=== PATIENT | female | born 1950 ===

== ENCOUNTER 2022-06-05 21:47 | Emergency (ER) | payer OTHER ==
--- OUTSIDE RECORDS SUMMARY | 2022-06-05 21:50 | XMS REPORT | Continuity of Care Document ---
:1950 Author Organization [facility] t Address [address] [place] [address] Care Team Providers Name Role Phone KARLENE Attending Clinician Unavailable Sakina Attending Clinician Unavailable KARLENE Admitting Clinician Unavailable Sakina Admitting Clinician Unavailable Payers Payer Name Policy Type Policy Number Effective Date Expiration Date S stephane [place]: [id number] 2017 [employer] [employer] 00:00:00 [place]: [id number] 2017 [place] [employer] - 00:00:00 [facility] - [id number] 2018 EV BENEFITS 00:00:00 MANAGEMENT Problems Condition Condition Condition Status Onset Resolution Last Treating Co mments Source Name Details Category Date Date Treatment Clinician Date Long-term Long-term Problem Active 2020-09 [facility] drug Drug 0-18 da therapy Therapy 00:00: Medical 00 Group Osteopenia Osteopenia Problem Active 2019-09 [facility] with high with High 2-17 da fracture Fracture 00:00: Medica l risk Risk 00 Group Essential Essential Problem Active 2016-09 [facility] hypertensi Hypertensi 0-04 da on on 00:00: Medical 00 Group Acute Acute Disease [facility] 4[facility] Hepatitis, Hepatitis, Disease [facility] Jaundice Jaundice Disease [facility] Allergies, Adverse Reactions, Alerts Allergy Allergy Status Severity Reaction(s) Onset Inactive Treating Comm ents Source Name Type Date Date Clinician Lisinopr Drug Active Other (See Coughing [facility] Int[facility] Comments) 4[facility]14 [facility] Iodine Propensi Active [facility] 4[facility]12 [facility] Iodide adverse 00:00: Medical Containi reaction 00 Center ng s Products Shellfis Propensi Active [facility] 01-03 [facility] Containi adverse 00:00: Medical ng reaction 00 Center Products s Iodine Allergy Active [facility] SHELLFIS Allergy Active [place] to da DERIVED [facility] Medical e [facility] Social History Social Habit Start Date Stop Date Quantity Comments Source Alcohol intake 2016-01-07 2016-01-07 Current [facility] Wally es 00:00:00 00:00:00 non-drinker of Medical Ce nter alcohol (finding) Tobacco use and 2016-01-04 2016-01-04 Never used [facility] Li kes exposure 00:00:00 00:00:00 [facility] Center Sex Assigned At [birth year] [facility] Li kes 00:00:00 00:00:00 Medical Center Smoking Status Start Date Stop Date Source Former Smoker [place] [facility] Never smoker [facility] Med ical Center Medications Ordered Filled Start Stop Current Ordering Indication Dosage Frequency Signature Comments Components Source Medication Medication Date Date Medication? Clinician (SIG) Name Name losartan-hy Yes 1{tbl} QD Take [address] drochloroth 4-17 tablet by Wally es iazide 19:34: mouth Medical (HYZAAR) 23 daily. Center 100-25 mg per tablet promethazin Yes 25mg Take [address] [facility] [facility] e 4-17 by mouth [facility] (PHENERGAN) 19:34: every 6 Med ical 25 MG 23 (six) Center tablet hours as needed for Nausea. amlodipine amlodipine No amlodipine [facility] 10 mg 10 mg 10 mg da tablet TAKE tablet TAKE tablet Medical 1 TABLET BY 1 TABLET BY TAKE 1 Group MOUTH ONCE MOUTH ONCE TABLET BY DAILY DAILY MOUTH ONCE DAILY Breo Breo No 1puff(s Q1D Breo [place] Ellipta 100 Ellipta 100 ) Ellipta da mcg-25 mcg-25 100 mcg-25 Medic al mcg/dose mcg/dose mcg/dose Rafiq up powder for powder for powder for inhalation inhalation inhalation Inhale 1 Inhale 1 Inhale 1 puff every puff every puff every day by day by day by inhalation inhalation inhalation route for route for route for 90 days. 90 days. 90 days. metoprolol metoprolol No metoprolol [place] succinate succinate succinate da ER 50 mg ER 50 mg ER 50 mg Med ical tablet,exte tablet,exte tablet,ext Group nded nded ended release 24 release 24 release 24 hr TAKE 1 hr TAKE 1 hr TAKE 1 TABLET BY TABLET BY TABLET BY MOUTH ONCE MOUTH ONCE MOUTH ONCE DAILY DAILY DAILY Ventolin Ventolin No 2puff(s Q4H Ventolin [facility] HFA 90 HFA 90 ) HFA 90 da mcg/actuati mcg/actuati mcg/actuat Medical on aerosol on aerosol ion Rafiq up inhaler inhaler aerosol Inhale 2 Inhale 2 inhaler puffs every puffs every Inhale 2 4 hours by 4 hours by puffs inhalation inhalation every 4 route as route as hours by needed for needed for inhalation 90 days. 90 days. route as needed for 90 days. Immunizations Ordered Immunization Filled Immunization Date Status Commen ts Source Name Name Influenza vaccine, Influenza vaccine, 2021-07-12 Completed [place] quadrivalent, quadrivalent, 09:54:35 Medical Group adjuvanted adjuvanted pneumococcal, pneumococcal, 2020-07-08 Completed Mike a unspecified unspecified 00:00:00 Medical Grou p formulation formulation zoster live zoster live 2018-05-22 Completed [place] 00:00:00 Medical Group zoster live zoster live 2017-01-22 Completed [place] 00:00:00 Medical Group Vital Signs Vital Name Observation Time Observation Value Comments Source BP Diastolic 2022-02-17 00:00:00 83 mm[Hg[facility] Height 2022-02-17 00:00:00 60 [in_i] [facility] BMI (Body Mass 2022-02-17 00:00:00 51.9 kg/m2 [facility]) Group BP Systolic 2022-02-17 00:00:00 155 mm[Hg] [facility] Body Weight 2022-02-17 00:00:00 4256 [facility]_av[facility] BP Diastolic 2021-07-12 00:00:00 80 mm[Hg] [facility] Height 2021-07-12 00:00:00 60 [in_i] [facility] BMI (Body Mass 2021-07-12 00:00:00 54.4 kg/m2 [facility]) Group BP Systolic 2021-07-12 00:00:00 135 mm[Hg] [facility] Body Weight 2021-07-12 00:00:00 4453 [oz_av] [facility] BP Diastolic 2020-10-19 00:00:00 89 mm[Hg] [facility] Height 2020-10-19 00:00:00 60 [in_i] [facility] BMI (Body Mass 2020-10-19 00:00:00 52.7 kg/m2 [facility]) Group BP Systolic 2020-10-19 00:00:00 149 mm[Hg] [facility] Body Weight 2020-10-19 00:00:00 4315.2 [oz_av] [facility] BP Diastolic 2020-08-17 00:00:00 99 mm[Hg] [facility] Height 2020-08-17 00:00:00 60 [in_i] [facility] BMI (Body Mass 2020-08-17 00:00:00 51.7 kg/m2 [facility]) Group BP Systolic 2020-08-17 00:00:00 152 mm[Hg] [facility] Body Weight 2020-08-17 00:00:00 4232 [oz_av] [facility] BP Diastolic 2020-07-06 00:00:00 68 mm[Hg] [facility] Height 2020-07-06 00:00:00 60 [in_i] [facility] BMI (Body Mass 2020-07-06 00:00:00 51.8 kg/m2 [facility]) Group BP Systolic 2020-07-06 00:00:00 130 mm[Hg] [facility] Body Weight 2020-07-06 00:00:00 4241.6 [oz_av] [facility] BP Diastolic 2019-11-18 00:00:00 81 mm[Hg] [facility] Height 2019-11-18 00:00:00 60 [in_i] [facility] BMI (Body Mass 2019-11-18 00:00:00 50.5 kg/m2 [facility]) Group BP Systolic 2019-11-18 00:00:00 144 mm[Hg] [facility] Body Weight 2019-11-18 00:00:00 4136 [oz_av] [facility] BP Diastolic 2019-09-19 00:00:00 80 mm[Hg] [facility] Height 2019-09-19 00:00:00 60 [in_i] [facility] BMI (Body Mass 2019-09-19 00:00:00 49.6 kg/m2 [facility]) Group BP Systolic 2019-09-19 00:00:00 141 mm[Hg] [facility] Body Weight 2019-09-19 00:00:00 4064 [oz_av] [facility] BP Diastolic 2019-07-04 00:00:00 81 mm[Hg] [facility] Height 2019-07-04 00:00:00 60 [in_i] [facility] BMI (Body Mass 2019-07-04 00:00:00 55 kg/m2 [facility]) Group BP Systolic 2019-07-04 00:00:00 144 mm[Hg] [facility] Body Weight 2019-07-04 00:00:00 4505 [oz_av] [facility] BP Diastolic 2019-06-27 00:00:00 78 mm[Hg] [facility] Height 2019-06-27 00:00:00 60 [in_i] [facility] BMI (Body Mass 2019-06-27 00:00:00 53 kg/m2 [facility]) Group BP Systolic 2019-06-27 00:00:00 140 mm[Hg] [facility] Body Weight 2019-06-27 00:00:00 4342 [oz_av] [facility] BP Diastolic 2019-06-17 00:00:00 80 mm[Hg] [facility] Height 2019-06-17 00:00:00 60 [in_i] [facility] BMI (Body Mass 2019-06-17 00:00:00 54.9 kg/m2 [facility]) Group BP Systolic 2019-06-17 00:00:00 133 mm[Hg] [facility] Body Weight 2019-06-17 00:00:00 4496 [oz_av] [facility] BP Diastolic 2018-10-02 00:00:00 86 mm[Hg] [facility] Height 2018-10-02 00:00:00 60 [in_i] [facility] BMI (Body Mass 2018-10-02 00:00:00 55.1 kg/m2 [facility]) Group BP Systolic 2018-10-02 00:00:00 167 mm[Hg] [facility] Body Weight 2018-10-02 00:00:00 4512 [oz_av] [facility] Procedures Procedure Date / Time Performing Clinician Source Performed XR, hand, 3 or more view 2022-02-17 00:00:00 [facility] MAMMO, screening, digital, 2021-07-12 00:00[facility] DEXA 2021-07-12 00:00:00 [place] [facility] MAMMO, screening, digital, 2020-08-17 00:00:00 [facility] XR, chest, 2 view 2019-07-04 00:00:00 [facility] MAMMO, screening, digital, 2019-06-17 00:00:00 [facility] Hernia Repair W/mesh 2007-09-24 00:00:00 [facility] Hernia Repair W/mesh 2006-09-24 00:00:00 [facility] Cholecystectomy 2004-09-24 00:00:00 [place] [facility] Tubal Ligation [facility] Eye Surgery Procedure [facility] Plan of Care Planned Activity Planned Date Details Comments Source Diagnostic Test 2022-02-17 magnesium, serum or [facility] Pending 00:00:00 plasma [code = Group magnesium, serum or plasma] Diagnostic Test 2022-02-17 BMP, serum or plasma [facility] Pending 00:00:00 [code = BMP, serum or Group plasma] Diagnostic Test 2022-02-17 CK (creatine kinase), [facility] Pending 00:00:00 total, serum [code = Group CK (creatine kinase), total, serum] Diagnostic Test 2022-02-17 phosphorus, serum or [facility] Pending 00:00:00 plasma [code = Group phosphorus, serum or plasma] Diagnostic Test 2022-02-17 hemoglobin A1c, QN, [facility] Pending 00:00:00 blood [code = Group hemoglobin A1c, QN, blood] Diagnostic Test 2022-02-17 rf (rheumatoid [facility] Pending 00:00:00 factor), serum [code = Group rf (rheumatoid factor), serum] Diagnostic Test 2022-02-17 ESR (erythrocyte [facility] Pending 00:00:00 sedimentation rate), Group blood [code = ESR (erythrocyte sedimentation rate), blood] Diagnostic Test 2022-02-17 JOYA (antinuclear [facility] Pending 00:00:00 antibodies) screen, Group ifa, serum [code = JOYA (antinuclear antibodies) screen, ifa, serum] Future Appointment 2022-08-20 Brittany Behzad Jara [facility] 00:00:[address] [facility] [address]; , [place] [address] Future Appointment 2022-07-[address] 00:00:[address] [facility] [address]; , [place] [address] Instructions [facility] Group Encounters Start End Encounter Admission Attending Care Care Encounter Source Date/Time Date/Time Type Type Clinicians Facility Department ID 2022-04-26 2022-04-26 Outpatient KELVIN ABREU [id number] [place] 00:00:00 00:00:00 SSA 0803 da [facility] 2022-02-17 2022-02-17 Britt[place] J[place]_S[place] MMG [place] - [id number] 22 [place] 00:00:00 00:00:00 Ramírez [facility] 27 lisa Jara [facility] Medical [employer]: [address] [facility] [address], [place] [address] , Ph. 2021-07-15 2021-07-15 Outpatient Hawkins_M MMG MMG [id number] -2020 [place] 09:09:00 09:09:00 1022 Medical Group 2021-07-12 2021-07-12 Brittany Hawkins_M [place]G [place] - [id number] 21 [place] 00:00:00 00:00:00 Desiree Vazquez 1019 [facility] Medical [employer]: [address] [facility] [address], [place] [address] , Ph. 2021-07-11 2021-07-11 Outpatient Hawkins_M MMG MMG [id number] -2020 [place] 01:16:00 01:16:00 1018 Medical Group 2021-06-25 2021-06-25 Outpatient Hawkins_M MMG MMG [id number] -2020 [place] 03:31:00 03:31:00 1002 Medical Group 2021-02-15 2021-02-15 Outpatient Hawkins_M MMG MMG [id number] -2020 [place] 05:32:00 05:32:00 0525 Medical Group 2021-01-21 2021-01-21 Outpatient Hawkins_M MMG MMG [id number] -[id number] [place] 08:51:00 08:51:00 0430 Medical Group 2021-01-14 2021-01-14 Outpatient Hawkins_M MMG MMG [id number] -2020 [place] 03:20:00 03:20:00 0423 Medical Group 2020-11-23 2020-11-23 Outpatient Hawkins_M MMG MMG [id number] -2020 [place] 09:41:00 09:41:00 0302 da Medical Group 2020-11-17 2020-11-17 Outpatient Hawkins_M MMG MMG [id number] -2020 [place] 03:30:00 03:30:00 0224 Medical Group 2020-10-19 2020-10-19 Brittany Hawkins_M MM[place] - [id number] 21 [place] 00:00:00 00:00:00 Desiree Vazquez 0126 da Jara, Medical Medical [employer]: [address] [facility] [address], [place] [address] , Ph. 2020-08-17 2020-08-17 Brittany Jara_M [place] - [id number] 20 [place] 00:00:00 00:00:00 Desiree Vazquez 1124 lisa Jara, Medical Medical [employer]: [address] [facility] [address], [place] [address] , Ph. 2020-08-11 2020-08-11 Outpatient Hawkins_M MMG MMG [id number] -2019 [place] 02:30:00 02:30:00 1118 da Medical Group 2020-07-09 2020-07-09 Outpatient Hawkins_M MMG MMG [id number] -2019 [place] 10:22:00 10:22:00 1016 Medical Group 2020-07-07 2020-07-07 Outpatient Hawkins_M MMG MMG [id number] -2019 [place] 09:50:00 09:50:00 1014 da Medical Group 2020-07-06 2020-07-06 Brittany Hawkins_M MM[place] - [id number] 20 [place] 00:00:00 00:00:00 Desiree Vazquez 1013 lisa Jara, Medical Medical [employer]: [address] [place] [address] [address], [place] [address] , Ph. 2020-06-18 2020-06-18 Outpatient Hawkins_M MMG MMG [id number] -2019 [place] 03:23:00 03:23:00 0925 da Medical Group 2019-11-19 2019-11-19 Outpatient Hawkins_M MMG MMG [id number] [place] 07:25:00 07:25:00 0226 da Medical Group 2019-11-18 2019-11-18 Brittany Hawkins_M [place] - [id number] 20 [place] 00:00:00 00:00:00 Desiree Vazquez 0225 lisa Jara, Medical Medical [employer]: [address] [facility] [address], [place] [address] , Ph. 2019-09-26 2019-09-26 Outpatient Sakina [facility] [id number] [place] 04:27:00 04:27:00 0103 lisa Medical Group 2019-09-19 2019-09-19 [place] [facility] [place] - [id number] [place] 00:00:00 00:00:00 Desiree Vazquez 1227 lisa Jara Medical Medical [employer]: [address] [facility] [address], [place] [address] , Ph. 2019-07-04 2019-07-04 [place] [facility] [place] - [id number] [place] 00:00:00 00:00:00 Desiree Vazquez 1011 lisa Jara Medical Medical [employer]: [address] [facility] [address], [place] [address] , Ph. 2019-06-27 2019-06-27 Britt[place] [facility] [place] [place] - [id number] [place] 00:00:00 00:00:00 Desiree Vazquez 1004 lisa Jara Medical Medical [employer]: [address] [facility] [address], [place] [address] , Ph. 2019-06-17 2019-06-17 Jose [place] [facility] [place] [place] [place] - [id number] [place] 00:00:00 00:00:00 Milo Vazquez 09 lisa [facility] Medical MD: [address] [facility] [address], [place] [address] , Ph. 2018-10-02 2018-10-02 La[place] [facility] [place] [place] [place] - [id number] [place] 00:00:00 00:00:00 Discovery Zack 0109 lisa [employer]: [address] [place] [address] [address], [facility] [address] , Ph. Results Test Description Test Time Test Comments Results Result Comments Source CBC W Auto Differential panel - Blood 2021-07-12 07:29:00 Test Item Value Reference Range Interpretation Comme nts white blood count (test code = white blood count) 8.4 K/uL 4.0- 11.5 red blood count (test code = red blood count) 4.63 M/uL 3.80-5.2 0 hemoglobin (test code = hemoglobin) 14.3 g/dL 10.5-15.7 hematocrit (test code = hematocrit) 44.8 % 34.0-50.0 MCV [Entitic volume] (test code = 45785-2) 96.8 fL 86-100 mean corpuscular hemoglobin (test code = mean corpuscular 30.9 pg 26.2-33.4 hemoglobin) mean corpuscular HGB conc (test code = mean corpuscular HGB 31.9 g/ dL 30-34 conc) red cell distribution width (test code = red cell 12.6 % 12.0 -15.5 distribution width) platelet count (test code = platelet count) 326 K/uL 165-450 mean platelet volume (test code = mean platelet volume) 10.3 fL 9.4-12.6 Segmented neutrophils/100 leukocytes in Blood (test code = 68.0 % 44.4-80.1 79945-3) Immature granulocytes [#/volume] in Blood (test code = 0.1 K/uL 0.0-0.03 H 64543-5) lymphocyte% (test code = lymphocyte%) 20.6 % 10.0-50.0 mono % (test code = mono %) 8.4 % 3.6-12.0 eos % (test code = eos %) 2.0 % 0.0-5.4 Basophils/100 leukocytes in Unspecified specimen (test code 0.4 % 0.1-1.2 = 44805-7) Band form neutrophils [#/volume] in Blood (test code = 5.73 K/uL 1.56-6.13 64474-7) Lymphocytes [#/volume] in Unspecified specimen by Automated 1.7 K/u L 1.18-3.74 count (test code = 02111-0) mono # (test code = mono #) 0.71 K/uL 0.24-0.86 eos # (test code = eos #) 0.17 K/uL 0.04-0.36 basophil # (test code = basophil #) 0.03 K/uL 0.01-0.08 NRBC% (test code = NRBC%) 0 /100 WBC 0-0.2 NRBC# (test code = NRBC#) 0 K/uL [facility]Mass/volume] in [id number] 07:29:00 Test Item Value Reference Range Interpretation Comments Hemoglobin A1c [Mass/volume] in Blood 6.6 % 4.0-6.0 H (test code = 50537-5) [facility] 2000 [facility] - Serum or Plasma 2021-07-12 07:29:00 Test Item Value Reference Range Interpretation Comments glucose (test code = glucose) 138 mg/dL 82-115 H Urea nitrogen [Mass/volume] in 11 mg/dL 8-23 Serum or Plasma (test code = 3094-0) osmolality calculated,serum (test 281 mOsm/kg 280-300 code = osmolality calculated,serum) creatinine (test code = 0.6 mg/dL 0.50-0.90 creatinine) glomerular filtration rate (test >60.00 code = glomerular filtration rate) Urea nitrogen/Creatinine [Mass 18.3 12-20 Ratio] in Serum or Plasma (test code = 3097-3) sodium level (test code = sodium 140 mmol/L 135-145 level) Potassium [Moles/volume] in Body 4.4 mmol/L 3.5-5.2 fluid (test code = 2821-7) chloride level (test code = 102 mmol/L 98-108 chloride level) CO2 (test code = CO2) 26 mmol/L 21-32 anion gap (test code = anion gap) 16.4 mEq/L 12-20 calcium level (test code = 9.6 mg/dL 8.8-10.2 calcium level) total protein (test code = total 7.7 g/dL 6.6-8.7 protein) albumin (test code = albumin) 4.2 g/dL 3.5-5.2 globulin (test code = globulin) 3.5 gm/dL A/G ratio (test code = A/G ratio) 1.2 >1.0 bilirubin,total (test code = 0.4 mg/dL 0.0-1.2 bilirubin,total) AST/SGOT (test code = AST/SGOT) 30 U/L 15-32 Alanine aminotransferase 30 U/L 0-33 [Enzymatic activity/volume] in Serum or Plasma (test code = 1742-6) Alkaline phosphatase [Enzymatic 91 U/L 35-105 activity/volume] in Serum or Plasma (test code = 6768-6) [facility] 1996 panel - Serum or [id number] 07:29:00 Test Item Value Reference Range Interpretation Comments cholesterol level (test code = 152 mg/dL 150-200 cholesterol level) triglycerides level (test code = 133 mg/dL <150 triglycerides level) HDL cholesterol (test code = HDL 43 mg/dL >65 L cholesterol) LDL cholesterol direct (test code = 94 mg/dL <100 LDL cholesterol direct) cholesterol risk ratio (test code = 3.534 cholesterol risk ratio) [facility] W Reflex Culture panel - Urine 2021-07-12 00:00:00 Test Item Value Reference Range Interpretation Comments Color of Urine by Auto (test light yellow code = 54872-2) Appearance of Urine (test code clear clear = 5767-9) Glucose [Presence] in Urine by negative negative Automated test strip (test code = 54180-3) Bilirubin.total [Mass/volume] negative negative in Urine (test code = 1978-6) Ketones [Mass/volume] in Urine negative negative by Automated test strip (test code = 35243-1) Specific gravity of Urine by 1.016 1.003-1.030 Automated test strip (test code = 56569-4) blood urine (test code = blood negative negative urine) pH of Urine (test code = 7.000 5-9 2756-5) protein urine (UA) (test code = negative negative protein urine (UA)) Urobilinogen [Presence] in normal 0.2-1.0 Urine (test code = 27401-5) Nitrite [Presence] in Urine by negative negative Test strip (test code = 5802-4) Leukocyte esterase [Presence] negative negative in Urine by Automated test strip (test code = 86528-9) Erythrocytes [#/volume] in =1-5 0-5 Urine by Automated count (test code = 798-9) Leukocytes [#/area] in Urine =1-5 0-5 sediment by Automated count (test code = 22991-2) Epithelial cells [Presence] in =1-5 0-5 Urine sediment by Light microscopy (test code = 59118-5) Bacteria identified in Urine by none detected none detect Culture (test code = 630-4) Casts [#/area] in Urine none detected none detect sediment by Automated count (test code = 40239-9) urine culture added? (test code no = urine culture added?) [facility] [Units/volume] in Serum or [id number] 00:00:00 Test Item Value Reference Range Interpretation Comments Thyrotropin [Units/volume] in 3.33 uIU/mL 0.36-3.74 Serum or Plasma (test code = 3016-3) [facility] Center[facility]atitis C virus Ab [Units/volume] in [id number] 00:00:00Hepatitis C Virus Ab, SerumMataLaird HospitalMglqu27-Bbusfhthrjlvvs D3+25-Hydroxyvitamin D2 [Mass/volume] in Serum or [id number] 00:00:00 Test Item Value Reference Range Interpretation Comments vitamin D, 25-hydroxy, total, serum 13.78 (test code = vitamin D, 25-hydroxy, total, serum) [facility] Center[facility]inalysis macro (dipstick) panel - [id number] 15:16:00 Test Item Value Reference Range Interpretation Comments Leukocytes (test code = Leukocytes) Negative Nitrite (test code = Nitrite) negative Urobilinogen (test code = 1 Urobilinogen) Protein (test code = Protein) Negative pH (test code = pH) 6.0 Blood (test code = Blood) Moderate Specific Hudson (test code = 1.030 Specific Hudson) Ketone (test code = Ketone) Negative Bilirubin (test code = Bilirubin) Negative Glucose (test code = Glucose) Negative Appearance (test code = Appearance) Cloudy Color (test code = Color) Yellow [facility] 2000 panel - Serum or Plasma 2019-06-27 07:06:00 Test Item Value Reference Range Interpretation Comments Glucose [Mass/volume] in Serum or 131 mg/dL 82-115 H Plasma (test code = 2345-7) Urea nitrogen [Mass/volume] in 9 mg/dL 8-23 Serum or Plasma (test code = 3094-0) osmolality calculated, serum (test 280 280-300 code = osmolality calculated, serum) creatinine (test code = 0.6 mg/dL 0.50-0.90 creatinine) glomerular filtration rate (test >60.00 code = glomerular filtration rate) Urea nitrogen/Creatinine [Mass 15.0 12-20 Ratio] in Serum or Plasma (test code = 3097-3) sodium level (test code = sodium 140 mmol/L 135-145 level) potassium level (test code = 4.0 mmol/L 3.5-5.2 potassium level) chloride level (test code = 102 mmol/L 98-108 chloride level) CO2 (test code = CO2) 27 mmol/L 21-32 anion gap (test code = anion gap) 15.0 mEq/L 12-20 calcium level (test code = calcium 9.6 mg/dL 8.8-10.2 level) total protein (test code = total 8.3 g/dL 6.6-8.7 protein) albumin (test code = albumin) 4.6 g/dL 3.5-5.2 globulin (test code = globulin) 3.7 gm/dL A/G ratio (test code = A/G ratio) 1.2 >1.0 bilirubin,total (test code = 0.4 mg/dL 0.0-1.2 bilirubin,total) AST/SGOT (test code = AST/SGOT) 29 U/L 15-32 Alanine aminotransferase 28 U/L 0-33 [Enzymatic activity/volume] in Serum or Plasma (test code = 1742-6) Alkaline phosphatase [Enzymatic 130 U/L 35-105 H activity/volume] in Serum or Plasma (test code = 6768-6) [facility] - [facility] or [id number] 07:06:00 Test Item Value Reference Range Interpretation Comments cholesterol level (test code = 140 mg/dL 150-200 L cholesterol level) triglycerides level (test code = 133 mg/dL <150 triglycerides level) HDL cholesterol (test code = HDL 40 mg/dL >65 L cholesterol) LDL cholesterol direct (test code = 90 mg/dL <100 LDL cholesterol direct) cholesterol risk ratio (test code = 3.500 cholesterol risk ratio) [facility]] in Serum or [id number] 07:06:00 Test Item Value Reference Range Interpretation Comments Thyrotropin [Units/volume] in 3.91 uIU/mL 0.36-3.74 H Serum or Plasma (test code = 3016-3) [facility] - Serum or Plasma 2019-06-27 07:06:00 Test Item Value Reference Range Interpretation Comments Glucose [Mass/volume] in Serum or 131 mg/dL 82-115 H Plasma (test code = 2345-7) Urea nitrogen [Mass/volume] in 9 mg/dL 8-23 Serum or Plasma (test code = 3094-0) osmolality calculated, serum (test 280 280-300 code = osmolality calculated, serum) creatinine (test code = 0.6 mg/dL 0.50-0.90 creatinine) glomerular filtration rate (test >60.00 code = glomerular filtration rate) Urea nitrogen/Creatinine [Mass 15.0 12-20 Ratio] in Serum or Plasma (test code = 3097-3) sodium level (test code = sodium 140 mmol/L 135-145 level) potassium level (test code = 4.0 mmol/L 3.5-5.2 potassium level) chloride level (test code = 102 mmol/L 98-108 chloride level) CO2 (test code = CO2) 27 mmol/L 21-32 anion gap (test code = anion gap) 15.0 mEq/L 12-20 calcium level (test code = calcium 9.6 mg/dL 8.8-10.2 level) total protein (test code = total 8.3 g/dL 6.6-8.7 protein) albumin (test code = albumin) 4.6 g/dL 3.5-5.2 globulin (test code = globulin) 3.7 gm/dL A/G ratio (test code = A/G ratio) 1.2 >1.0 bilirubin,total (test code = 0.4 mg/dL 0.0-1.2 bilirubin,total) AST/SGOT (test code = AST/SGOT) 29 U/L 15-32 Alanine aminotransferase 28 U/L 0-33 [Enzymatic activity/volume] in Serum or Plasma (test code = 1742-6) Alkaline phosphatase [Enzymatic 130 U/L 35-105 H activity/volume] in Serum or Plasma (test code = 6768-6) [facility] - Serum or [id number] 07:06:00 Test Item Value Reference Range Interpretation Comments cholesterol level (test code = 140 mg/dL 150-200 L cholesterol level) triglycerides level (test code = 133 mg/dL <150 triglycerides level) HDL cholesterol (test code = HDL 40 mg/dL >65 L cholesterol) LDL cholesterol direct (test code = 90 mg/dL <100 LDL cholesterol direct) cholesterol risk ratio (test code = 3.500 cholesterol risk ratio) [facility] [Units/volume] in Serum or [id number] 07:06:00 Test Item Value Reference Range Interpretation Comments Thyrotropin [Units/volume] in 3.91 uIU/mL 0.36-3.74 H Serum or Plasma (test code = 3016-3) [facility] - [id number] 06:58:00 Test Item Value Reference Range Interpretation Comments white blood count (test code = 7.9 K/uL 4.0-11.5 white blood count) red blood count (test code = red 4.75 M/uL 3.80-5.20 blood count) hemoglobin (test code = 14.4 g/dL 10.5-15.7 hemoglobin) hematocrit (test code = 43.9 % 34.0-50.0 hematocrit) Erythrocyte mean corpuscular 92.4 fL 86-100 volume [Entitic volume] (test code = 53018-5) mean corpuscular hemoglobin (test 30.3 pg 26.2-33.4 code = mean corpuscular hemoglobin) mean corpuscular HGB conc (test 32.8 g/dL 30-34 code = mean corpuscular HGB conc) red cell distribution width (test 13.3 % 12.0-15.5 code = red cell distribution width) platelet count (test code = 293 K/uL 165-450 platelet count) mean platelet volume (test code = 9.8 fL 9.4-12.6 mean platelet volume) Neutrophils.segmented/100 56.5 % 44.4-80.1 leukocytes in Blood (test code = 26753-7) Granulocytes Immature [#/volume] 0.0 K/uL 0.0-0.03 in Blood (test code = 51423-6) lymphocyte% (test code = 23.3 % 10.0-50.0 lymphocyte%) mono % (test code = mono %) 9.1 % 3.6-12.0 eos % (test code = eos %) 10.3 % 0.0-5.4 H Basophils/100 leukocytes in 0.5 % 0.1-1.2 Unspecified specimen (test code = 20291-3) Neutrophils.band form [#/volume] 4.46 K/uL 1.56-6.13 in Blood (test code = 87289-2) Lymphocytes [#/volume] in 1.8 K/uL 1.18-3.74 Unspecified specimen by Automated count (test code = 79361-4) mono # (test code = mono #) 0.72 K/uL 0.24-0.86 eos # (test code = eos #) 0.81 K/uL 0.04-0.36 H basophil # (test code = basophil 0.04 K/uL 0.01-0.08 #) NRBC% (test code = NRBC%) 0 /100 WBC 0-0.2 NRBC# (test code = NRBC#) 0 K/uL [facility], [id number] 06:58:00 NeutrophilsBandLymphocyteAtypical LymphMonocyteEosinophilBasophilDifferential CommentPlatelet EstimatePlatelet MorphologyPolychromasiaPoikilocytosisMacrocytosisStomatocyteToxic GranulationBurr CellsHypersegmented PolysRouleauDifferential comment-[facility] Auto Differential panel - [id number] 06:58:00 Test Item Value Reference Range Interpretation Comments white blood count (test code = 7.9 K/uL 4.0-11.5 white blood count) red blood count (test code = red 4.75 M/uL 3.80-5.20 blood count) hemoglobin (test code = 14.4 g/dL 10.5-15.7 hemoglobin) hematocrit (test code = 43.9 % 34.0-50.0 hematocrit) Erythrocyte mean corpuscular 92.4 fL 86-100 volume [Entitic volume] (test code = 60891-3) mean corpuscular hemoglobin (test 30.3 pg 26.2-33.4 code = mean corpuscular hemoglobin) mean corpuscular HGB conc (test 32.8 g/dL 30-34 code = mean corpuscular HGB conc) red cell distribution width (test 13.3 % 12.0-15.5 code = red cell distribution width) platelet count (test code = 293 K/uL 165-450 platelet count) mean platelet volume (test code = 9.8 fL 9.4-12.6 mean platelet volume) Neutrophils.segmented/100 56.5 % 44.4-80.1 leukocytes in Blood (test code = 33949-5) Granulocytes Immature [#/volume] 0.0 K/uL 0.0-0.03 in Blood (test code = 07459-5) lymphocyte% (test code = 23.3 % 10.0-50.0 lymphocyte%) mono % (test code = mono %) 9.1 % 3.6-12.0 eos % (test code = eos %) 10.3 % 0.0-5.4 H Basophils/100 leukocytes in 0.5 % 0.1-1.2 Unspecified specimen (test code = 85602-2) Neutrophils.band form [#/volume] 4.46 K/uL 1.56-6.13 in Blood (test code = 74329-4) Lymphocytes [#/volume] in 1.8 K/uL 1.18-3.74 Unspecified specimen by Automated count (test code = 64490-5) mono # (test code = mono #) 0.72 K/uL 0.24-0.86 eos # (test code = eos #) 0.81 K/uL 0.04-0.36 H basophil # (test code = basophil 0.04 K/uL 0.01-0.08 #) NRBC% (test code = NRBC%) 0 /100 WBC 0-0.2 NRBC# (test code = NRBC#) 0 K/uL [facility], [id number] 06:58:00 NeutrophilsBandLymphocyteAtypical LymphMonocyteEosinophilBasophilDifferential CommentPlatelet EstimatePlatelet MorphologyPolychromasiaPoikilocytosisMacrocytosisStomatocyteToxic GranulationBurr CellsHypersegmented PolysRouleauDifferential comment-[facility]
[2022-06-06] MEDS ORDERED: OXYMETAZOLINE HCL 0.05% 15ML NAS ONE ×2 (00:25→00:34)
--- NOTE | 2022-06-06 01:20 | ER ---
Nurse's Notes [facility] Name: Thao Granda Age: 71 yrs Sex: Female : 1950 Arrival Date: 06/05/2022 Time: 21:51 Bed 7 Private MD: Diagnosis: Epistaxis Presentation: 06/05 22:29 Chief complaint: Patient states: nose bleed started one hour ago. Coronavirus screen: 3 Vaccine status: Patient reports receiving the 2nd dose of the covid vaccine. Ebola Screen: No symptoms or risks identified at this time. Initial Sepsis Screen: Does the patient meet any 2 criteria? No. Patient's initial sepsis screen is negative. Does the patient have a suspected source of infection? No. Patient's initial sepsis screen is negative. Risk Assessment: Do you want to hurt yourself or someone else? Patient reports no desire to harm self or others. Onset of symptoms was June 05, 2022. 22:29 Method Of Arrival: Ambulatory [facility] 22:29 Acuity: DAVID 3 eh3 Triage Assessment: 23:00 General: Appears in no apparent distress. comfortable, Behavior is calm, cooperative, ld1 appropriate for age. Pain: Denies pain. Historical: - Allergies: 23:00 No Known Allergies; ld1 - Home Meds: 23:00 amlodipine oral [Active]; Metoprolol Tartrate Oral [Active]; ld1 - PMHx: 23:00 Hypertensive disorder; Osteoarthritis; ld1 - PSHx: 23:00 Cholecystectomy; ld1 - Immunization history:: Adult Immunizations up to date, Client reports receiving the 2nd dose of the Covid vaccine. - Social history:: Smoking status: Patient denies any tobacco usage or history of. Patient uses alcohol, but reports only rare drinking. Screenin:45 Abuse screen: Denies threats or abuse. Denies injuries from another. Nutritional ld1 screening: No deficits noted. Tuberculosis screening: No symptoms or risk factors identified. Fall Risk None identified. Assessment: 22:15 Reassessment: No changes from previously documented assessment. See triage assessment. ld1 22:45 Reassessment: Patient and/or family updated on plan of care and expected duration. Pain ld1 level reassessed. Patient is alert, oriented x 3, equal unlabored respirations, skin warm/dry/pink. Bleeding has stopped. Vital Signs: 22:15 BP 151 / 77; Pulse 120; Resp 18; Pulse Ox 99% on R/A; Pain 0/10; ld1 22:45 BP 140 / 74; Pulse 111; Resp 18; Pulse Ox 99% on R/A; Pain 0/10; ld1 23:00 BP 144 / 84; Pulse 106; Resp 16; Pulse Ox 99% on R/A; eh3 06/06 01:45 BP 149 / 92; Pulse 84; Resp 18 S; Pulse Ox 98% on R/A; as6 ED Course: 06/05 21:51 Patient arrived in ED. ag3 21:51 Abdoulaye Rolle MD is Attending Physician. kdr 22:29 Triage completed. 3 22:45 Patient has correct armband on for positive identification. Bed in low position. Call ld1 light in reach. Side rails up X2. Client placed on continuous cardiac and pulse oximetry monitoring. NIBP monitoring applied. 22:58 Shea Acharya, RN is Primary Nurse. ld1 23:00 Arm band placed on right wrist. ld1 06/06 01:17 Assist provider with nosebleed control using Afrin sprays, rhino rocket placed for as6 extensive packing needs, Bleeding from both nares. Set up for procedure. Performed by Abdoulaye Rolle MD Bleeding stopped. Patient tolerated well. 01:45 Patient did not have IV access during this emergency room visit. as6 Administered Medications: 01:19 Drug: Tylenol 1000 mg Route: PO; jj7 01:45 Follow up: Response: No adverse reaction as6 01:45 Drug: [place] (HYDROcodone-acetaminophen) 10 mg-325 mg 1 tabs Route: PO; as6 01:45 Follow up: Response: No adverse reaction as6 Medication: 06/05 22:45 VIS not applicable for this client. ld1 Outcome: 06/06 01:19 Discharge ordered by . kdr 01:45 Discharged to home ambulatory, with family. as6 01:45 Condition: stable 01:45 Discharge instructions given to patient, Instructed on discharge instructions, follow up and referral plans. medication usage, Demonstrated understanding of instructions, follow-up care, medications, Prescriptions given X 1. 01:45 Patient left the ED. as6 Signatures: Abdoulaye Rolle MD MD [facility] Shea Acharya RN RN ld1 Umberto Rodgers, RN RN as6 Janet Kee, RN RN eh3 Kori Sherman RN RN jj7
--- NOTE | 2022-06-06 01:20 | EDPHYS ---
Physician Documentation [facility] Name: Thao Granda Age: 71 yrs Sex: Female : 1950 Arrival Date: 06/05/2022 Time: 21:51 Bed 7 Private MD: ED Physician Abdoulaye Rolle HPI: 06/06 03:00 This 71 yrs old Female presents to ER via Ambulatory with complaints of Nose Bleed. kdr 03:00 The patient presents with a nose bleed, that is apparently anterior, from both nares. kdr Onset: The symptoms/episode began/occurred suddenly, 1.5 hour(s) ago. Modifying factors: The symptoms are alleviated by nothing. the symptoms are aggravated by blowing nose. Associated signs and symptoms: Pertinent positives: Headache. Severity of symptoms: At their worst the symptoms were moderate severe just prior to arrival, in the emergency department the symptoms are unchanged. The patient has not experienced similar symptoms in the past. The patient has not recently seen a physician. Several years ago the patient had a similar episode and required bilateral Rhino Rocket's at that time.. Historical: - Allergies: 06/05 23:00 No Known Allergies; ld1 - Home Meds: 23:00 amlodipine oral [Active]; Metoprolol Tartrate Oral [Active]; ld1 - PMHx: 23:00 Hypertensive disorder; Osteoarthritis; ld1 - PSHx: 23:00 Cholecystectomy; ld1 - Immunization history:: Adult Immunizations up to date, Client reports receiving the 2nd dose of the Covid vaccine. - Social history:: Smoking status: Patient denies any tobacco usage or history of. Patient uses alcohol, but reports only rare drinking. ROS: 06/06 03:00 Constitutional: Negative for fever, chills, and weight loss, Eyes: Negative for injury, kdr pain, redness, and discharge, Neck: Negative for injury, pain, and swelling, Cardiovascular: Negative for chest pain, palpitations, and edema, Respiratory: Negative for shortness of breath, cough, wheezing, and pleuritic chest pain, Abdomen/GI: Negative for abdominal pain, nausea, vomiting, diarrhea, and constipation, Back: Negative for injury and pain, : Negative for injury, bleeding, discharge, and swelling, MS/Extremity: Negative for injury and deformity, Skin: Negative for injury, rash, and discoloration, Psych: Negative for depression, anxiety, suicide ideation, homicidal ideation, and hallucinations, Allergy/Immunology: Negative for hives, rash, and allergies, Endocrine: Negative for neck swelling, polydipsia, polyuria, polyphagia, and marked weight changes, Hematologic/Lymphatic: Negative for swollen nodes, abnormal bleeding, and unusual bruising. ENT: Positive for nose bleed. Neuro: Positive for headache. Exam: 03:02 Constitutional: This is a well developed, well nourished patient who is awake, alert, kdr and in no acute distress. Head/Face: Normocephalic, atraumatic. Eyes: Pupils equal round and reactive to light, extra-ocular motions intact. Lids and lashes normal. Conjunctiva and sclera are non-icteric and not injected. Cornea within normal limits. Periorbital areas with no swelling, redness, or edema. Neck: Trachea midline, no thyromegaly or masses palpated, and no cervical lymphadenopathy. Supple, full range of motion without nuchal rigidity, or vertebral point tenderness. No Meningismus. Chest/axilla: Normal chest wall appearance and motion. Nontender with no deformity. No lesions are appreciated. Cardiovascular: Regular rate and rhythm with a normal S1 and S2. No gallops, murmurs, or rubs. Normal PMI, no JVD. No pulse deficits. Respiratory: Lungs have equal breath sounds bilaterally, clear to auscultation and percussion. No rales, rhonchi or wheezes noted. No increased work of breathing, no retractions or nasal flaring. Abdomen/GI: Soft, non-tender, with normal bowel sounds. No distension or tympany. No guarding or rebound. No evidence of tenderness throughout. Back: No spinal tenderness. No costovertebral tenderness. Full range of motion. Skin: Warm, dry with normal turgor. Normal color with no rashes, no lesions, and no evidence of cellulitis. MS/ Extremity: Pulses equal, no cyanosis. Neurovascular intact. Full, normal range of motion. Neuro: Awake and alert, GCS 15, oriented to person, place, time, and situation. Cranial nerves II-XII grossly intact. Motor strength 5/5 in all extremities. Sensory grossly intact. Cerebellar exam normal. Normal gait. Psych: Awake, alert, with orientation to person, place and time. Behavior, mood, and affect are within normal limits. 03:02 ENT: Nose: bleeding, is noted from both nares, and is moderate. Vital Signs: 06/05 22:15 BP 151 / 77; Pulse 120; Resp 18; Pulse Ox 99% on R/A; Pain 0/10; ld1 22:45 BP 140 / 74; Pulse 111; Resp 18; Pulse Ox 99% on R/A; Pain 0/10; ld1 23:00 BP 144 / 84; Pulse 106; Resp 16; Pulse Ox 99% on R/A; eh3 06/06 01:45 BP 149 / 92; Pulse 84; Resp 18 S; Pulse Ox 98% on R/A; as6 Procedures: 03:02 Epistaxis treatment: A small amount of bleeding noted from A moderate amount of kdr bleeding noted from both nares. Treated using direct pressure, rhino rocket, Bleeding stopped. Patient tolerated well. MDM: 01:19 Patient medically screened. kdr 03:02 Data reviewed: vital signs, nurses notes. Counseling: I had a detailed discussion with kdr the patient and/or guardian regarding: the historical points, exam findings, and any diagnostic results supporting the discharge/admit diagnosis, the need for outpatient follow up. ED course: The patient was happy with the care provided and the interventions given. Patient was happy with the plan for discharge and follow-up. Administered Medications: 01:19 Drug: Tylenol 1000 mg Route: PO; jj7 01:45 Follow up: Response: No adverse reaction as6 01:45 Drug: [place] (HYDROcodone-acetaminophen) 10 mg-325 mg 1 tabs Route: PO; as6 01:45 Follow up: Response: No adverse reaction as6 Disposition Summary: 06/06/22 01:19 Discharge Ordered Location: Home kdr Problem: new kdr Symptoms: have improved kdr Condition: Stable kdr Diagnosis - Epistaxis kdr Followup: kdr - With: Private Physician - When: 2 - 3 days - Reason: If symptoms return, Further diagnostic work-up, Recheck today's complaints, Continuance of care, Re-evaluation by your physician Discharge Instructions: - Discharge Summary Sheet kdr - Nosebleed, Adult, [id number] kdr Forms: - Medication Reconciliation Form kdr - Thank You Letter kdr - Antibiotic Education kdr - Prescription Opioid Use kdr Prescriptions: - Augmentin 875-125 mg Oral Tablet - take 1 tablet by ORAL route every 12 hours for 10 days; 20 tablet; Refills: 0, kdr Product Selection Permitted Signatures: Abdoulaye Rolle MD MD kdr Shea Acharay RN RN ld1 Umberto Rodgers RN RN as6 Kori Sherman RN RN jj7
[2022-06-06] MEDS ORDERED: ACETAMINOPHEN 500 MG TAB ONE (01:23)
[2022-06-06] MEDS ORDERED: HYDROCODONE/APAP 10/325 TAB ONE (01:50)
[2022-06-06 04:19] VITALS: BP 149/92; O2SAT 98
== END 2022-06-06 01:45 | disposition home or self-care (01) ==
LOC: ER 21:47
PROC: 2Y41X5Z Packing of Nasal Region using Packing Material (ICD-10-PCS; principal; 2022-06-06)
DX: R04.0 Epistaxis (principal)
CPT/HCPCS: 30901; 99283